=== PATIENT | male | born 1945 | race Caucasian/White ===

== ENCOUNTER 2021-02-26 04:25 | Day surgery (SDC) | payer OTHER, MEDICARE ==
[2021-02-22 11:20] VITALS: BMI 24.9
[2021-02-26] MEDS ORDERED: LIDOCAINE HCL 1%, 10 MG/ML (20ML VIAL) ONE (12:31)
[2021-02-26] MEDS ORDERED: SUCCINYLCHOLINE CHLORIDE 200 MG/10 ML SYRINGE ONE (12:55)
[2021-02-26] MEDS ORDERED: PROPOFOL 20 ML ONE (12:55)
[2021-02-26] MEDS ORDERED: ACETAMINOPHEN 1000 MG/100 ML VIAL (NON FORMULARY) IVPB ONE (13:17)
[2021-02-26] MEDS ORDERED: MIDAZOLAM HCL 2 MG/2 ML SINGLE DOSE VIAL ONE ×2 (13:18→13:33)
[2021-02-26] MEDS ORDERED: DEXTROSE 5%-0.45% SALINE 1,000 ML IV SCH (13:30)
[2021-02-26] MEDS ORDERED: IBUPROFEN 800 MG/8 ML IJ IVPB SCH (13:30)
[2021-02-26] MEDS ORDERED: LIDOCAINE HCL 1%, 10 MG/ML (20ML VIAL) INF ONE ×2 (13:46)
[2021-02-26] MEDS ORDERED: oxyCODONE HCL 5 MG TABLET PO PRN (14:17)
[2021-02-26] MEDS ORDERED: LACTATED RINGERS SOLUTION 1,000 ML IV SCH (14:30)
[2021-02-26] MEDS ORDERED: ACETAMINOPHEN INJECTION 100 ML IVPB ONE (14:32)
[2021-02-26 16:04] VITALS: BP 165/60; PULSE 59; TEMP 97.8
== END 2021-02-26 16:12 | disposition home or self-care (01) ==
LOC: JASU-SURG 04:25
PROVIDERS: ATTEND Urology
PROC: 01HY0MZ Insertion of Neurostimulator Lead into Peripheral Nerve, Open Approach (ICD-10-PCS; 2021-02-26)
PROC: 0JH70BZ Insertion of Single Array Stimulator Generator into Back Subcutaneous Tissue and Fascia, Open Approach (ICD-10-PCS; principal; 2021-02-26 13:00)
DX: N39.41 Urge incontinence (principal)
CPT/HCPCS: 64581; 64590; C1767; C1778; 76000-TC-FY; 82962; 94760; J0131